=== PATIENT | male | born 1985 | race Caucasian/White ===

== ENCOUNTER 2024-01-18 14:06 | Emergency (ER) | payer SELFPAY ==
[2024-01-18 14:07] VITALS: BP 122/78; BMI 29.4
--- NOTE | 2024-01-18 15:03 | CON.MD ---
Consultation - Medical
-
patient is a 38 year old male brought in by police. he is depressed. he has suicidal thoughts though no intent or plan. he is homeless [facility] 2020 and was sleeping recently in a [place] in the [facility]. he had been spending
part of the day in [facility] and staff became concerned. he wears dark sunglasses and a mask. he said he was looking for someone to help him as he has no place to live, no phone etc. he allegedly followed an employee home and left her a
note part of which reads as follows :' my hands are tied. this is absolutely horrible...every night i go back to a nightmare...my body aches and my pillow is drenched in tears.........I hate to say it but i am at the edge of a wes. there is
absolutely nothing to live for...' patient denies hallucinations. no overt delusions.
past psych hx denied any prior hx of psych or psych rx
medical hx patient has niddm with neuropathy. no medications recently.he eats when he can get some money to get food . c/o abdominal cramping. migraine headaches. labs not yet done
substance abuse denied
mother drug addict who of an overdose
social hx patient was born in [place]. he came month w his mom when he was 16. mom was a drug addict who of an od in a crack house. he lived with his gm who also . he could not tell me when but he lost her place due to financial issues
and has been homeless for several years. he never knew his father and had no sibs. he dropped out of . has had some jobs though none recently
mse alert ox3 cooperative speech sparse . he answered questions only very briefly and incompletely. it seemed to pain him even to talk. no overt psychosis mood is depressed affect constricted patient is hopeless w suicidal thoughts but did not
express intent or plan aver intelligence insight judgment lacking
dx major depression
plan will uphold 302 as patient does seem to me to be a suicide risk. needs medical clearance at which point will search for an in patient psychiatric bed.
[2024-01-18 15:53] LABS: % Basophils 0.6 % (0-2); % Immature Granulocytes 0.3 % (0-0.5); % Lymphocytes 11.5 % (20.5-51.1); % Monocytes 5.6 % (1.7-9.3); Absolute Basophils 0.1 10^3/uL (0-0.2); Absolute Eosinophils 0.3 10^3/uL (0-0.7); Absolute Immature Granulocytes 0.1 10^3/uL (0-0.05); Absolute Lymphocytes 1.7 10^3/uL (1.2-3.4); Absolute Monocytes 0.8 10^3/uL (0.1-0.6); Absolute Neutrophils 11.9 10^3/uL (1.4-6.5); Hematocrit 43.1 % (39.0-52.0); Mean Corp Hgb Conc. 34.8 g/dL (33.0-37.0); Mean Corpuscular Hgb 28.9 pg (27.0-31.0); Mean Platelet Volume 10.2 fL (7.4-10.4); Nucleated Red Blood Cells % 0 % (-); Platelet Count 300 10^3/uL (130-400); Red Blood Cell Count 5.19 10^6/uL (4.70-6.10); Red Cell Dist. Width 13.2 % (11.5-14.5); Urine Albumin Negative (Neg - Trace); Urine Bilirubin Negative (Negative); Urine Character Clear (Clear); Urine Color Yellow; Urine Glucose Negative (Negative); Urine Ketone Negative (Negative); Urine Leukocyte Negative (Negative); Urine Nitrite Negative (Negative); Urine Occult Blood Negative (Negative); Urine Specific Gravity 1.015 (<1.030); Urine Urobilinogen Negative (Neg - 1+); White Blood Cell Count 14.9 10^3/uL (4.8-10.8)
[2024-01-18 16:10] LABS: ALT (SGPT) 56 U/L (0-50); AST (SGOT) 39 U/L (17-59); Albumin 4.7 g/dl (3.5-5.0); Alkaline Phosphatase 102 U/L (38-126); Blood Urea Nitrogen 16 mg/dl (9-20); Calcium 9.8 mg/dl (8.4-10.2); Carbon Dioxide 28 mmol/L (22-30); Chloride 102 mmol/L (98-107); Estimated Creatinine Clearance > 125 ml/min; Glucose 103 mg/dl (70-99); Potassium 4.1 mmol/L (3.5-5.1); Sodium 138 mmol/L (135-145); Total Bilirubin 0.5 mg/dl (0.2-1.3); Total Protein 7.2 g/dl (6.3-8.2); eGFR > 60.00
[2024-01-18 16:12] LABS: Alcohol None Detected
[2024-01-18 16:20] LABS: Amphetamines Negative (Negative); Barbiturates Negative (Negative); Benzodiazepines Negative (Negative); Buprenorphine Negative (Negative); Cocaine Negative (Negative); Marijuana Negative (Negative); Methadone Negative (Negative); Methamphetamines Negative (Negative); Opiates Negative (Negative); Phencyclidine Negative (Negative); Tricyclic Antidepressants Negative (Negative)
--- NOTE | 2024-01-18 18:45 | ED.GENMED ---
History of Present Illness
General
Chief Complaint: Psychiatric Problem
Source: patient
Exam Limitations: none
Time Seen by Provider: 01/18/24 15:24
Nursing documentation reviewed up to this point in time: agreed with
History of Present Illness
History of Present Illness:
Patient to ED on 302 by police. He reports falling, has abrasions to his hands and left knee. He has declined to answer any questions. Agrees to physical exam.
Past History
Past History
ED Past Medical History: None
ED Past Surgical History: None
Review of Systems
Review of Systems
Allergies reviewed?: Yes
All Other Systems: ROS reviewed and negative except as documented in HPI and ROS
Constitutional: Reports no symptoms
EENT: Reports no symptoms
Respiratory: Reports no symptoms
Cardiac: Reports no symptoms
ABD/GI: Reports no symptoms
Musculoskeletal: Reports joint pain (left knee pain)
Skin: Reports other (abrasions to paalmar hands, left knee)
Neurological: Reports no symptoms
Psychiatric: Reports depression
Phy Exam
General Physical Exam
General Presentation: well appearing and no apparent distress
General age: appears stated age
General Skin: warm and dry
General Habitus: normal
General Mental: alert
Cardiovascular Exam
Cardiovascular Exam: regular rate/rhythm and no edema
Pulmonary Exam
Pulmonary Exam: lungs clear and no respiratory distress
Gastrointestinal Exam
Gastrointestinal Exam: normal bowel sounds, non tender, soft, no organomegaly and non distended
Neurological Exam
Neurological Exam: alert, oriented x3, CN II-XII intact, no motor deficits, no sensory deficits, speech normal and normal gait
Musculoskeletal Exam
Musculoskeletal Exam: full ROM and neuro vasc intact
Skin Exam
Skin Exam: normal color, warm/dry and other (superficial abrasions to bilateral palmar hands)
Psychiatric Exam
Psychiatric Exam: depressed
Course
Orders/Labs/Results
Orders:
Orders
01/18/24 15:30
Alcohol Urgent
Complete Blood Count/With Diff Urgent
Comprehensive Metabolic Panel Urgent
Urinalysis Reflex To Culture Urgent
Date Specimen was Collected: 01/18/24
Time Specimen was Collected: 15:28
Urine Drug Abuse Screen Urgent
Date Specimen was Collected: 01/18/24
Time Specimen was Collected: 15:28
01/18/24 15:32
Hand, Left 3 View [CR Hand - Left Min 3 Views] Urgent
Comment:
Reason For Exam: fall
Hand, Right 3 View [CR Hand - Right Min 3 Views] Urgent
Comment:
Reason For Exam: fall
Knee, Left 4 or More Views [CR Knee - Left 4 Or More View*] Urgent
Comment:
Reason For Exam: fall
Abnormal Lab Results
01/18/24
15:30
WBC 14.9 H 10^3/uL
(4.8-10.8)
Abs Immat Gran (auto) 0.1 H 10^3/uL
(0-0.05)
Absolute Neuts (auto) 11.9 H 10^3/uL
(1.4-6.5)
Absolute Monos (auto) 0.8 H 10^3/uL
(0.1-0.6)
Neutrophils % 80.0 H %
(42.2-75.2)
Lymphocytes % 11.5 L %
(20.5-51.1)
Glucose 103 H mg/dl
(70-99)
ALT 56 H U/L
(0-50)
01/18/24 15:30
01/18/24 15:30
Vital Signs
Initial and Last Documented VS:
Initial Vital Signs
Temp Pulse Resp BP Pulse Ox
98.2 F 74 18 122/78 99
01/18/24 14:07 01/18/24 14:07 01/18/24 14:07 01/18/24 14:07 01/18/24 14:07
Last Documented Vital Signs
Temp Pulse Resp BP Pulse Ox
98.2 F 74 18 122/78 99
01/18/24 14:07 01/18/24 14:07 01/18/24 14:07 01/18/24 14:07 01/18/24 14:07
*Radiology
Radiology exam reviewed: radiology read reviewed
*Pulse Oximetry
Patient hypoxic: no
*Critical Care Note
Total Time (30-74mins, 75-104mins- exclusive of procedures): Not Applicable
Update Note
Update Note:
Jayson Almanza is medially stable for inpatient psychiatric care.
ED Attending Note
-
Portions of this chart may have been created with voice recognition software.� Occasional wrong word or��sound alike� substitutions may have occurred due to the inherent limitations of voice recognition software.
Discharge Plan
Departure
Patient Disposition: Psych Facility
Date of Disposition: 01/18/24
Time of Disposition: 19:44
Patient Status:: 302
Condition: Fair
Covid-19: Not Applicable
Discharge Problem:
Medical clearance for psychiatric admission
Prescriptions:
No Action
No Current Medications
0
Referrals:
UNKNOWN,NO INTERVIEW [Family Provider] -
Interventions
Interventions:
*Risk Screen - Suicide Last Done: 01/18/24 14:07
*General Assessment Last Done: 01/18/24 14:07
*Neglect/Abuse Screening Last Done: 01/18/24 14:07
ED- Fall Risk Assessment Last Done: 01/18/24 14:07
*ED COVID-19 Vaccine History Last Done: 01/18/24 21:06
*Nursing Disposition Last Done: 01/18/24 21:06
ED-Psychological Assessment Last Done: 01/18/24 14:07
Discharge Date and Time
Discharge Date/Time: 01/18/24 21:06
Print Language: SWAZI
Skin Exam
Abrasion
Bilateral Palmar Hand:
Description of abrasion: superfical/clean
== END 2024-01-18 21:06 ==
LOC: EMR 14:06
PROVIDERS: Nurse Practitioner; EMERGENCY PHYSICIAN Emergency Medicine
DX: Z13.30 Encounter for screening examination for mental health and behavioral disorders, unspecified (principal); S60.512A Abrasion of left hand, initial encounter; S80.212A Abrasion, left knee, initial encounter; X58.XXXA Exposure to other specified factors, initial encounter
CPT/HCPCS: 99283; 73130; 73564; 80053; 80306; 81003; 82077; 85025